=== PATIENT | male | born 1995 | race Caucasian/White ===

== ENCOUNTER 2016-10-27 03:20 | Emergency (ER) | payer OTHER ==
[2016-10-27 03:44] VITALS: BP 132/69; PULSE 82; TEMP 97.9; BMI 27.4
--- NOTE | 2016-10-27 04:19 | PDOC ---
History of Present Illness - General Chief Complaint: Ear Problem Stated Complaint: EAR PAIN Time Seen by Provider: 10/27/16 03:23 - History of Present Illness Initial Comments: 10/27/16 04:18 CHIEF COMPLAINT: ear pain HISTORY OF PRESENT ILLNESS: 21 yo M with no PMH presents to ED with ear pain x 5 days. Patient states that the pain has worsened and he feels like he can't hear as well as usual. No recent travel or sick contacts. PAST MEDICAL HISTORY: Denies past medical history ALLERGIES: No known drug allergies REVIEW OF SYSTEMS General/Constitutional: Denies fever or chills. Denies weakness, weight change. HEENT: L ear pain. Denies change in vision. Denies sore throat. Cardiovascular: Denies chest pain or shortness of breath. Respiratory: Denies cough, wheezing, or hemoptysis. Gastrointestinal: Denies nausea, vomiting, diarrhea or constipation. Denies rectal bleeding. Genitourinary: Denies dysuria, frequency, or change in urination. Musculoskeletal: Denies joint or muscle swelling or pain. Denies neck or back pain. Skin: Denies rash or easy bruising. Neurologic: Denies headache, vertigo, loss of consciousness, or loss of sensation. PHYSICAL EXAM General Appearance: Well-appearing, appropriately dressed. No apparent distress , no intoxication. HEENT: Erythema to L auditory canal. EOMI, PERRLA, normal ENT inspection, normal voice, TMs normal, pharynx normal. No conjunctival pallor. No photophobia, scleral icterus. Respiratory/Chest: Lungs CTAB. Cardiovascular: RRR. S1, S2. Musculoskeletal/Extremities: Normal inspection. FROM of all extremities, normal capillary refill. Pelvis Stable. No CVA tenderness. No tenderness to extremities, pedal edema, swelling, erythema or deformity. Integumentary: Appropriate color, dry, warm. 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 Fully oriented, alert. Appropriate mood/affect. Motor strength 5/5. No appreciable EOM palsy, facial droop or sensory deficit. Past History - Past Medical History Allergies/Adverse Reactions: Allergies Allergy/AdvReac Type Severity Reaction Status Date / Time No Known Allergies Allergy Verified 10/27/16 03:43 Home Medications: Ambulatory Orders Amoxicillin - [Amoxicillin 500mg Capsule -] 500 mg PO TID #21 capsule 10/27/16 - Psycho/Social/Smoking Cessation Hx Suicidal Ideation: No Smoking History: Never smoked Have you smoked in the past 12 months: No Information on smoking cessation initiated: No Hx Alcohol Use: No Drug/Substance Use Hx: No *Physical Exam - Vital Signs Last Vital Signs Temp Pulse Resp BP Pulse Ox 97.9 F 82 20 132/69 99 10/27/16 03:43 10/27/16 03:43 10/27/16 03:43 10/27/16 03:43 10/27/16 03:43 *DC/Admit/Observation/Transfer Diagnosis at time of Disposition: Otitis media Qualifiers: Otitis media type: unspecified Laterality: left Chronicity: unspecified Qualified Code(s): H66.92 - Otitis media, unspecified, left ear - Discharge Dispostion Disposition: HOME Condition at time of disposition: Stable Admit: No - Prescriptions Prescriptions: Amoxicillin - [Amoxicillin 500mg Capsule -] 500 mg PO TID #21 capsule - Referrals Referrals: Harrison Reyna MD [Staff Physician] - - Patient Instructions Printed Discharge Instructions: Middle Ear Infection Additional Instructions: Please follow up with a primary care doctor next week. A referral has been provided. If you experience fever, nausea, vomiting, diarrhea, headache, shortness of breath, chest pain, or any new or worsening symptoms, please return to the ER. Por favor, siga con un mdico de atencin primaria la prxima semana. Se vargas proporcionado luiz referencia. Si experimenta fiebre, nuseas, vmitos, diarrea, dolor de wade, dificultad para respirar, dolor en el pecho o cualquier s ntoma nuevo o que empeora, por favor regrese a la shiloh de emergencias. Print Language: CHINESE
== END 2016-10-27 04:55 | disposition home or self-care (01) ==
LOC: JER 03:20
DX: H66.92 Otitis media, unspecified, left ear (principal)
CPT/HCPCS: 99281-25

== ENCOUNTER 2020-09-12 18:10 | Emergency (ER) | payer OTHER ==
[2020-09-12 18:25] VITALS: BP 122/82; PULSE 89; TEMP 97.6; BMI 28.8
[2020-09-12] MEDS ORDERED: CLINDAMYCIN HCL 300 MG CAPSULE PO ONE (19:24)
[2020-09-12] MEDS ORDERED: IBUPROFEN 400 MG TABLET (FP) PO ONE ×2 (19:25→19:34)
[2020-09-12] MEDS ORDERED: CLINDAMYCIN HCL 150 MG CAPSULE (FP) ONE (19:35)
== END 2020-09-12 19:53 | disposition home or self-care (01) ==
LOC: JERFT 18:10
DX: L03.317 Cellulitis of buttock (principal); L02.31 Cutaneous abscess of buttock
CPT/HCPCS: 99283-25

== ENCOUNTER 2020-09-14 13:45 | Emergency (ER) | payer OTHER ==
[2020-09-14 13:51] VITALS: BP 125/76; PULSE 65; BMI 28.3
[2020-09-14 13:52] VITALS: TEMP 98
== END 2020-09-14 14:35 | disposition home or self-care (01) ==
LOC: JERFT 13:45
DX: Z48.00 Encounter for change or removal of nonsurgical wound dressing (principal)
CPT/HCPCS: 99281-25

== ENCOUNTER 2024-07-12 20:45 | Emergency (ER) | payer OTHER ==
[2024-07-12 21:04] VITALS: BP 150/91; PULSE 86; RESP 16; TEMP 98.8; BMI 30.7
[2024-07-12 22:35] LABS: THROAT:GRP A STREP NOT DETECTED (NOTDETECTED)
[2024-07-12] MEDS ORDERED: IBUPROFEN 600 MG TABLET (FP) PO ONE (23:26)
[2024-07-12] MEDS: IBUPROFEN 600 MG TABLET (FP) PO ONE (23:28)
== END 2024-07-12 23:51 | disposition home or self-care (01) ==
LOC: JERFT 20:45
DX: R05.9 Cough, unspecified (principal); R09.81 Nasal congestion; J06.9 Acute upper respiratory infection, unspecified; Z20.822 Contact with and (suspected) exposure to COVID-19
CPT/HCPCS: 0241U-QW; 71046-TC-FY; 87651; 99284-25